=== PATIENT | female | born 1995 | race Caucasian/White ===

== ENCOUNTER 2017-01-31 01:09 | Observation (INO) | payer OTHER ==
[~2017-01-31] VITALS: Ht 167.6 cm; Wt 66.8 kg
[~2017-01-31 01:09] MED LIST: CYCL5TAB PO
[2017-01-31 01:16] VITALS: BP 132/94; PULSE 97; RESP 20; TEMP 98.9; O2SAT 100
[2017-01-31 01:35] VITALS: BP 132/94; PULSE 97; RESP 20; TEMP 98.9; O2SAT 100
[2017-01-31] MEDS ORDERED: ONDANSETRON HCL 4 MG/2 ML VIAL IV PUSH ONE (01:45)
[2017-01-31] MEDS ORDERED: SODIUM CHLORIDE 0.9% FLUSH 5 ML FLUSH IVF PRN (01:45)
[2017-01-31] MEDS ORDERED: SODIUM CHLORID 0.9% 500 ML INJ 500 ML IV ONE (01:45)
[2017-01-31 02:34] LABS: AUTOMATED NEUTROPHIL # 5.2 TH/MM3 (1.8-7.7); BASOPHIL # 0.1 TH/MM3 (0-0.2); BASOPHIL % 0.6 % (0.0-2.0); EOSINOPHIL # 0.1 TH/MM3 (0-0.4); EOSINOPHIL % 0.6 % (0.0-4.0); HEMATOCRIT 44.2 % (35.0-46.0); HEMO FLAGS DIFF FINAL; LYMPH % 32.1 % (9.0-44.0); MEAN CELL VOLUME 85.8 FL (80.0-100.0); MEAN CORPUSCULAR HEMOGLOBIN 28.7 PG (27.0-34.0); MEAN CORPUSCULAR HGB CONC 33.5 % (32.0-36.0); MONO % 9.2 % (0.0-8.0); NEUT % 57.5 % (16.0-70.0); PLATELET COUNT 455 TH/MM3 (150-450); RED BLOOD COUNT 5.16 MIL/MM3 (4.00-5.30); RED CELL DISTRIBUTION WIDTH 12.1 % (11.6-17.2); WHITE BLOOD COUNT 9.3 TH/MM3 (4.0-11.0)
--- NOTE | 2017-01-31 02:46 | RADHPO ---
EXAM DATE/TIME: 01/31/2017 02:03 [place] COMPARISON: No previous studies available for comparison. INDICATIONS : Irregular heart rate, chest tightness for 1 hour MEDICAL HISTORY : None. SURGICAL HISTORY : None. ENCOUNTER: Initial ACUITY: 1 day PAIN SCORE: 0/10 LOCATION: Bilateral chest FINDINGS: Single AP view of the chest. The lungs are clear. Cardiomediastinal silhouette within normal limits. No evidence of pleural effusion or pneumothorax. CONCLUSION: No acute cardiopulmonary disease identified. Davion Alegre MD on January 31, 2017 at 2:43 Board Certified Radiologist. This report was verified electronically.
[2017-01-31 02:47] LABS: CHLORIDE 103 MEQ/L (98-107); SODIUM (NA) 141 MEQ/L (136-145)
[2017-01-31 02:48] LABS: POTASSIUM 2.8 MEQ/L (3.5-5.1)
[2017-01-31 02:49] VITALS: BP 127/80; PULSE 66; RESP 18; O2SAT 97
[2017-01-31 02:54] LABS: ALT (GPT) 26 U/L (9-42); ANION GAP 11 MEQ/L (5-15); AST (GOT) 19 U/L (16-38); BICARBONATE 27.1 MEQ/L (21.0-32.0); BLOOD UREA NITROGEN 7 MG/DL (7-18); GLOMERULAR FILTRATION RATE 90 ML/MIN (>89); MAGNESIUM 2.2 MG/DL (1.5-2.5)
[2017-01-31] MEDS ORDERED: POTASSIUM CHLORIDE 25 MEQ EFFERVESCENT TAB PO ONE (03:00)
[2017-01-31 03:08] LABS: ALKALINE PHOSPHATASE 78 U/L (45-117); CREATINE KINASE 167 U/L (26-192); TOTAL BILIRUBIN ADULT 0.7 MG/DL (0.2-1.0)
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
[2017-01-31 03:23] LABS: CKMB 1.1 NG/ML (0.5-3.6)
[2017-01-31 03:25] LABS: APTT (PATIENT) 28.1 SEC (24.3-30.1); INTERNATIONAL NORMALIZED RATIO 1.1 RATIO
[2017-01-31 03:48] VITALS: BP 131/73; PULSE 87; RESP 18; O2SAT 99
[2017-01-31 04:09] LABS: AMPHETAMINE, URINE POS (NEG); BARBITURATES, URINE NEG (NEG)
[2017-01-31 04:10] LABS: COCAINE, URINE NEG (NEG)
[2017-01-31] MEDS ORDERED: NALOXONE HCL 0.4 MG/ML AMP IV PRN (04:30)
[2017-01-31] MEDS ORDERED: ASPIRIN 81 MG CHEW TAB CHEW ONE (04:30)
[2017-01-31] MEDS ORDERED: SODIUM CHLORIDE 0.9% FLUSH 5 ML FLUSH FLUSH PRN (04:30)
[2017-01-31] MEDS: POTASSIUM CHLOR 20 MEQ PREMIX 100 ML IV SCH ×2 (04:44→07:00)
[2017-01-31 05:38] VITALS: BP 113/67; PULSE 67; RESP 20; O2SAT 98
[2017-01-31] MEDS ORDERED: SODIUM CHLORIDE 0.9% FLUSH 5 ML FLUSH FLUSH SCH (09:00)
[2017-01-31 10:09] LABS: ANION GAP 8 MEQ/L (5-15); BICARBONATE 27.1 MEQ/L (21.0-32.0); BLOOD UREA NITROGEN 7 MG/DL (7-18); CHLORIDE 107 MEQ/L (98-107); CREATINE KINASE 122 U/L (26-192); GLOMERULAR FILTRATION RATE 126 ML/MIN (>89); POTASSIUM 3.7 MEQ/L (3.5-5.1); SODIUM (NA) 142 MEQ/L (136-145)
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
--- NOTE | 2017-01-31 11:25 | HHI.DCPOC ---
Discharge Care Plan Diagnosis: (1) Chest pain (2) Palpitations (3) Hypokalemia Goals to Promote Your Health * To prevent worsening of your condition and complications * To maintain your health at the optimal level Directions to Meet Your Goals Take your medications as prescribed Follow your dietary instruction Follow activity as directed Keep your appointments as scheduled Take your immunizations and boosters as scheduled If your symptoms worsen call your PCP, if no PCP go to Urgent Care Center or Emergency Room Smoking is Dangerous to Your Health. Avoid second hand smoke Call the 24-hour hour crisis hotline for domestic abuse at Jayce Sanderson Jan 31, 2017 11:25
[2017-01-31] MEDS ORDERED: DILTIAZEM HCL 30 MG TAB PO SCH (13:00)
--- NOTE | 2017-01-31 13:45 | EKG ---
Date Performed: 01/31/2017 Time Performed: 08:44:10 PTAGE: 21 years EKG: Sinus arrhythmia. Septal T wave changes are normal for age Normal ECG NO PREVIOUS TRACING DOCTOR: Mau Cline Interpretating Date/Time 01/31/2017 13:43:28
--- NOTE | 2017-01-31 13:51 | EKG ---
Date Performed: 01/31/2017 Time Performed: 01:27:06 PTAGE: 21 years EKG: Sinus rhythm . Inferior and septal ST-T changes are nonspecific Borderline ECG NO PREVIOUS TRACING DOCTOR: Mau Cline Interpretating Date/Time 01/31/2017 13:48:26
== END 2017-01-31 13:15 | disposition left against medical advice (07) ==
LOC: PHED 01:09 → PHEDA 04:29 → PH3B 06:28
PROVIDERS: ADMIT Hospitalist; ATTEND Hospitalist
DX: R07.89 Other chest pain (principal); R11.2 Nausea with vomiting, unspecified; R00.2 Palpitations; E87.6 Hypokalemia
CPT/HCPCS: 71010; 80048; 80053; 80307; 82550; 82552; 83690; 83735; 84443; 84484; 84703; 85025; 85379; 85610; 85730; 93005; 96361; 96374; 99285; G0378; J2405; J3480; J7040